=== PATIENT | female | born 1945 | race Caucasian/White ===

== ENCOUNTER 2016-11-13 10:02 | Observation (INO) | payer MEDICARE, SELFPAY ==
[~2016-11-13] VITALS: Ht 147.3 cm; Wt 139.4 kg
[~2016-11-13 10:02] MED LIST: ANUSOL-HC30 GM TOP; APRESOLINE10 MG PO; BUMEX1 MG PO; CEROVITE ADVANC1 TAB PO; CLARITIN10 MG PO; COREG25 MG PO; COZAAR100 MG PO; ESCITALOPRAM OX10 MG PO; LANTUS SOL100 UNIT/1 SUBCUT; NIZORAL 2% SHA120 ML TOP; PROAIR HFA8.5 GM INH; PROCTOZONE-HC30 GM RECTAL; REPATHA PU420 MG/3.5 SUBCUT; ZYLOPRIM300 MG PO; ZYRTEC10 M3 PO
[2016-11-13] MEDS ORDERED: ZYLOPRIM100 MG PO (15:00)
[2016-11-13] MEDS ORDERED: COREG25 MG PO (15:01)
[2016-11-13] MEDS ORDERED: XANAX0.5 MG PO (15:01)
[2016-11-13] MEDS ORDERED: HALFPRIN81 MG PO (15:03)
[2016-11-14] MEDS ORDERED: MUCINEX600 MG PO (15:06)
[2016-11-14] MEDS ORDERED: AUGMENTIN 500-1 EACH PO (15:11)
[2016-11-14] MEDS ORDERED: ELIQUIS5 MG PO (15:16)
[2016-11-14] MEDS ORDERED: NYATA15 GM TOP (15:16)
[2016-11-14] MEDS ORDERED: DUONEB 3.0-0.5 M3 ML INH (15:40)
== END 2016-11-14 16:33 ==
LOC: RAD 10:02 → ER 10:02 → OBS 14:50 → IP 14:50
PROVIDERS: ADMIT Family Medicine
DX: M25.552 Pain in left hip (principal); J30.9 Allergic rhinitis, unspecified; D64.9 Anemia, unspecified; F32.9 Major depressive disorder, single episode, unspecified; M10.9 Gout, unspecified; E78.5 Hyperlipidemia, unspecified; D72.829 Elevated white blood cell count, unspecified; G47.30 Sleep apnea, unspecified; E55.9 Vitamin D deficiency, unspecified; E11.22 Type 2 diabetes mellitus with diabetic chronic kidney disease; I12.9 Hypertensive chronic kidney disease with stage 1 through stage 4 chronic kidney disease, or unspecified chronic kidney disease; N18.9 Chronic kidney disease, unspecified; M19.90 Unspecified osteoarthritis, unspecified site; W18.39XA Other fall on same level, initial encounter; Y93.01 Activity, walking, marching and hiking; Y92.002 Bathroom of unspecified non-institutional (private) residence as the place of occurrence of the external cause; Z82.49 Family history of ischemic heart disease and other diseases of the circulatory system; Z81.8 Family history of other mental and behavioral disorders; Z88.8 Allergy status to other drugs, medicaments and biological substances; Z79.82 Long term (current) use of aspirin; Z79.899 Other long term (current) drug therapy; Z90.49 Acquired absence of other specified parts of digestive tract; Z98.890 Other specified postprocedural states
CPT/HCPCS: 73501-LT; G0378; G8987-GO; G8988-GO; J1650; J1815; J1956; J2543

== ENCOUNTER → 2016-11-16 | Outpatient (CLI) | payer MEDICARE, SELFPAY ==
[~2016-11-16] MED LIST changes: +AUGMENTIN 500-1 EACH PO; +DUONEB 3.0-0.5 M3 ML INH; +ELIQUIS5 MG PO; +HALFPRIN81 MG PO; +MUCINEX600 MG PO; +NYATA15 GM TOP; +XANAX0.5 MG PO; +ZYLOPRIM100 MG PO
== END | disposition short-term general hospital (02) ==
LOC: CLNEUR 12:45
DX: R20.0 Anesthesia of skin (principal); R29.898 Other symptoms and signs involving the musculoskeletal system; R41.0 Disorientation, unspecified; E11.9 Type 2 diabetes mellitus without complications

== ENCOUNTER → 2017-02-01 | Outpatient (CLI) | payer MEDICARE, SELFPAY | END | disposition short-term general hospital (02) | LOC: CLNEUR 10:50 | DX: R25.1 Tremor, unspecified (principal); R22.0 Localized swelling, mass and lump, head ==